=== PATIENT | male | born 1950 | race Caucasian/White ===

== ENCOUNTER → 2018-05-18 11:41 | Outpatient (CLI) | payer MEDICARE, SELFPAY ==
[2018-05-18 14:35] LABS: AST(SGOT) 22 U/L (15-37); Alanine Aminotransfer ALT/SGPT 37 U/L (16-61); Albumin, Serum 4.2 g/dL (3.2-5.0); Alkaline Phosphatase 86 U/L (45-117); Bilirubin, Direct 0.12 mg/dL (0.00-0.30); Cholesterol 139 mg/dL (200); Globulin 3.4 g/dL (2.2-4.2); High Density Lipoprotein 46 mg/dL; Protein, Total 7.6 g/dL (6.4-8.2); Thyroid Stim Hormone (TSH) 1.23 uIU/mL (0.358-3.74); Triglycerides 82 mg/dL; Very Low Density Lipoprotein 16 mg/dL (5-40)
== END ==
PROVIDERS: Family Provider Family Medicine; PCP Family Medicine; Visit Provider Family Medicine
DX: E78.00 Pure hypercholesterolemia, unspecified (principal); E03.9 Hypothyroidism, unspecified
CPT/HCPCS: 36415; 80061; 80076; 84443

== ENCOUNTER → 2018-11-17 11:17 | Outpatient (CLI) | payer MEDICARE, SELFPAY ==
[2014-11-08 06:36] VITALS: BMI 34.9
[2018-11-17 13:48] LABS: Absolute Neutrophil Count 4.6 X10^3/uL (2.0-7.7); Basophil# 0.01 X10^3/uL; Basophil% 0.2 % (0-1); Eosinophil# 0.11 X10^3/uL; Eosinophils% 1.7 % (0-5); Hematocrit 45.8 % (40-54); Hemoglobin 15.2 g/dl (13.0-16.5); Lymphocyte % 21.4 % (19-41); Mean Corp Hgb Conc 33.2 g/gl (32-36); Mean Corpuscular Hgb 30.5 pg (27.0-32.0); Mean Platelet Vol. 10.4 fl (6.2-12.0); Monocyte# 0.43 X10^3/uL; Monocyte% 6.6 % (0-10); Neutrophil # 4.58 X10^3/uL (2.7-7.7); Neutrophil % 69.9 % (47-70); POSITIVE COUNT NO; POSITIVE DIFFERENTIAL NO; POSITIVE MORPHOLOGY NO; Platelet Count 202 K/mm3 (150-450); RBC Distribution Width CV 12.6 % (11.6-14.6); RBC Distribution Width SD 42.3 fl (35.1-43.9); Red Blood Count 4.98 M/mm3 (4.6-6.2); White Blood Count 6.5 K/mm3 (4.4-11.0)
[2018-11-17 13:54] LABS: Color, Urine Yellow (Yellow); Glucose, Dipstick Normal (Normal); Ketone-Dipstick Negative (Negative); Leukocyte Esterase-Dipstick Negative /ul (Negative); Nitrite-Dipstick Negative (Negative); Occult Blood-Urine Negative /ul (Negative); Protein-Dipstick Negative (Negative); Specific Gravity, Urine 1.015 (1.002-1.030); Urine Bilirubin Dipstick Negative (Negative); Urine Clarity Clear (Clear); Urine Urobilinogen Normal (Normal); Urine pH 6.5 (5.0 - 8.0)
[2018-11-17 14:11] LABS: ALB/GLOB Ratio 1.2 RATIO (0.9-2.4); AST(SGOT) 16 U/L (15-37); Alanine Aminotransfer ALT/SGPT 31 U/L (16-61); Albumin, Serum 4.1 g/dL (3.2-5.0); Alkaline Phosphatase 88 U/L (45-117); Anion Gap 6 (5-15); BUN 14 mg/dL (7-18); BUN/Creat Ratio 13.9 RATIO (10-20); Calcium,Total 8.9 mg/dL (8.5-10.1); Chloride 105 mmol/L (98-107); Cholesterol 119 mg/dL (200); Creatinine, Serum 1.01 mg/dL (0.70-1.30); EST Glomerular Filtration Rate 78 mL/min (>60); Est Glom Filt Rate - Afr Amer 94 mL/min (>60); Globulin 3.4 g/dL (2.2-4.2); Glucose 96 mg/dL (74-106); High Density Lipoprotein 42 mg/dL; PSA,Total - Annual Screen 0.96 ng/mL (0.00-4.00); Potassium 4.2 mmol/L (3.5-5.1); Protein, Total 7.5 g/dL (6.4-8.2); Sodium Level 140 mmol/L (136-145); Triglycerides 70 mg/dL; Very Low Density Lipoprotein 14 mg/dL (5-40)
== END ==
PROVIDERS: Family Provider Family Medicine; PCP Family Medicine; Referring Provider Family Medicine; Visit Provider Family Medicine
DX: Z00.00 Encounter for general adult medical examination without abnormal findings (principal); Z12.5 Encounter for screening for malignant neoplasm of prostate; I10 Essential (primary) hypertension; E78.5 Hyperlipidemia, unspecified; E03.9 Hypothyroidism, unspecified
CPT/HCPCS: 36415; 80053; 80061; 81002; 84153; 84443; 85025; G0103

== ENCOUNTER → 2018-12-04 08:07 | Outpatient (CLI) | payer MEDICARE, SELFPAY ==
--- NOTE | 2018-12-04 08:10 | CT_ITS ---
STUDY: CT ABDOMEN AND PELVIS WITH AND WITHOUT CONTRAST REASON FOR EXAM: Male, 68 years old. Hematuria, flank pain. RADIATION DOSAGE (If Supplied By Facility): CTDIvol = ( 34.88 ) mGy, DLP = ( 4090.43 ) mGycm TECHNIQUE: Transaxial images were obtained from the dome of the diaphragm to the symphysis pubis without oral contrast. Isovue 300 100cc IV was administered. Sagittal and coronal images were reconstructed. Individualized dose optimization techniques were used for this CT. COMPARISON: Prior comparison studies are not available for review at this time. FINDINGS: Focal pleural-based density at the lateral right costophrenic sulcus (series 3 image 9) is likely a scar. The visualized portions of the heart are within normal limits. There is a 6 mm low-density consistent with a cyst in the posterior right lobe of the liver. Patent portal vein diameter is 14.5 mm. Normal gallbladder and extrahepatic biliary system. The common bile duct diameter is 7.5 mm. Normal spleen. Normal pancreas. Normal bilateral adrenal glands. There is an exophytic 4.8 x 3.5 x 5.05 cm cortical cyst at the lateral upper pole of the right kidney. There is an exophytic 1. 651.5 x 1.7 cm cortical cyst at the posterior midpole of the left kidney. There is left nephrolithiasis, the largest 8.5 x 6 x 6 mm stone in the lower pole calyx. A number of parapelvic cysts that do not clearly communicate to the renal pelvis simulate left renal caliectasis. The left renal pelvis and infundibuli are nondilated. There is some mild stranding in the tissues around the proximal left ureter, which is also nondilated. Normal visualized stomach. Normal small intestine. There are multiple colonic diverticula consistent with diverticulosis. The appendix is visualized and appears normal. There is diffuse atherosclerotic calcification of the abdominal aorta and proximal iliac arteries, without a demonstrated aneurysm. Normal inferior vena cava. Normal retroperitoneum. Normal urinary bladder. Normal visualized prostate gland. There is a small right-sided direct inguinal hernia containing adipose tissue. There are diffuse degenerative changes of the visualized spine. There is osteoarthritic degenerative change of the right hip with moderately severe narrowing of the superior hip joint space CT/CT Abd/Pelvis W/WO Contrast IMPRESSION: 1. Left nephrolithiasis, as noted. There is some inflammatory or congestive stranding about the nondistended proximal left ureter, but no left hydronephrosis. A cluster of parapelvic cysts on the left simulate caliectasis. Bilateral renal cortical cysts also present, as described. 2. Aortoiliac atherosclerotic calcific plaquing. No demonstrated aneurysm, but the findings portend significant risk for future cardiovascular event, Abdominal Aortic Calcific Deposits Are an Important Predictor of Vascular Morbidity and Mortality; Satinder Valadez, et al. Circulation, Dec 2000;103:[id number]. 3. Colonic diverticulosis without acute diverticulitis. The bowel is otherwise unremarkable without signs of obstruction. The appendix is normal. 4. 6 mm cyst in the posterior right lobe of the liver. 5. Small fat-containing direct right inguinal hernia. 6. Degenerative changes of the spine as well as severe osteoarthritic degenerative change of the right hip. Electronically Signed: Ridge De Leon MD at 19:38 EST , Service support ,
== END ==
PROVIDERS: Family Provider Family Medicine; PCP Family Medicine; Referring Provider Nurse Practitioner Adult Health; Visit Provider Nurse Practitioner Adult Health
DX: R10.9 Unspecified abdominal pain (principal); R31.9 Hematuria, unspecified
CPT/HCPCS: 74178; Q9967

== ENCOUNTER 2018-12-25 11:34 | Day surgery (SDC) | payer MEDICARE, SELFPAY ==
--- NOTE | 2018-12-24 17:58 | HP.PCM_ITS ---
History and Physical Date of Admission: 12/25/18 68 yo male pt presents for left flank pain that radiated around to left testicle, this occurred 7 wks ago, the pain resolved but he still has a funny sensation along the left ureter. No gross hematuria. Urine was full of bubbles x 3 days at the onset. Has had kidney stones before. H/o left ureteroscopy, ESWL x 2. CC: AUA Questions Scoring. HPI: ALFREDO HAMPTON is a 68 year-old male patient who was referred by BRIAN COYLE M.D. who is here AUA Questions. AUA Symptom Score: Less than 20% of the time he has the sensation of not emptying his bladder completely when finished urinating. Less than 50% of the time he has to urinate again fewer than two hours after he has finished urinat ing. Less than 20% of the time he has to start and stop again several times when he urinates. He never finds it difficult to postpone urination. Less than 20% of the time he has a weak urinary stream. He never has to push or strain to begin urination. He has to get up to urinate 2 times from the time he goes to bed until the time he gets up in the morning. Calculated AUA Symptom Score: 7 ALLERGIES: None MEDICATIONS: Amlodipine Besilate Co-Q10 Levothyroxine Sodium Lisinopril Simvastatin 20 mg tablet PSH: None NON- PSH: None PMH: Calculus of kidney Frequency of micturition Nocturia Personal history of urinary calculi NON- PMH: Essential (primary) hypertension Hypothyroidism, unspecified FAMILY HISTORY: None SOCIAL HISTORY: Marital Status: Preferred Language: Hungarian Current Smoking Status: Patient does not smoke anymore. Smoked 2 packs per day. Tobacco Use Assessment Completed: Used Tobacco in last 30 days? Does not use smokeless tobacco. Social Drinker. Does not use drugs. REVIEW OF SYSTEMS: Constitutional: Patient denies fever, chills, weight loss, and weight gain. Eyes: Patient denies cataracts, vision problems, and blurry vision. Ears, Nose, Mouth, Throat: Patient reports sinus infections. Patient denies hearing loss, nasal stuffiness, and sleep apnea. Cardiovascular: Patient denies chest pains, swollen ankles, irregular heartbeat, and pacemaker/defibrillator. Respiratory: Patient denies shortness of breath, wheezing, use oxygen, cpap at night., and copd. Gastrointestinal: Patient denies abdominal pain, nausea/vomiting, and change in bowels. Genitourinary: Patient reports frequent urination, get up at night to void, history of stones, and difficulty starting stream. Patient denies urinary retent ion, leakage of urine, blood in urine, frequent urinary tract infections, weak stream, and bedwetting. Musculoskeletal: Patient denies sore muscles, back pain, gout, and arthritis. Integumentary/Skin: Patient denies rash, persistent itching, and skin cancer history. Neurological: Patient denies numbness, dizziness, stroke/tia, and history of falling/unsteadiness.. Hematologic/Lymphatic: Patient denies swollen glands, abnormal bleeding, transfusion history, and blood clots/dvt/pulmonary embolism. VITAL SIGNS: 11/30/2018 10:59 AM Weight 254 lb / 115.21 kg Height 72 in / 182.88 cm BP 132/80 mmHg BMI 34.4 kg/m? PHYSICAL EXAMINATION: Anus and Perineum: No hemorrhoids. No anal stenosis. No rectal fissure, no anal fissure. No edema, no dimple, no perineal tenderness, no anal tenderness. Scrotum: No lesions. No edema. No cysts. No warts. Epididymides: Right: no spermatocele, no masses, no cysts, no tenderness, no induration, no enlargement. Left: no spermatocele, no masses, no cysts, no tenderness, no induration, no enlargement. Testes: 3-5 cm hydrocele left testis. No tenderness, no swelling, no enlargement left testis. No tenderness, no swelling, no enlargement right testis. Normal location left testis. Normal location right testis. No mass, no cyst, no varicocele left testis. No mass, no cyst, no varicocele, no hydrocele right testis. Urethral Meatus: Normal size. No lesion, no wart, no discharge, no polyp. Normal location. Penis: Penis uncircumcised. No foreskin warts, no cracks. No dorsal peyronie's plaques, no left corporal peyronie's plaques, no right corporal peyronie's plaques, no scarring, no shaft warts. No balanitis, no meatal stenosis. Prostate: 40 gram or 2+ size. Left lobe normal consistency, right lobe normal consistency. Symmetrical lobes. No prostate nodule. Left lobe no tenderness, right lobe no tenderness. Seminal Vesicles: Nonpalpable. Sphincter Tone: Normal sphincter. No rectal tenderness. No rectal mass. MULTI-SYSTEM PHYSICAL EXAMINATION: Constitutional: Well-nourished. No physical deformities. Normally developed. Good grooming. Neck: Neck symmetrical, not swollen. Normal tracheal position. Respiratory: No labored breathing, no use of accessory muscles. Cardiovascular: Normal temperature, normal extremity pulses, no swelling, no varicosities. Lymphatic: No enlargement of neck, axillae, groin. Skin: No paleness, no jaundice, no cyanosis. No lesion, no ulcer, no rash. Neurologic / Psychiatric: Oriented to time, oriented to place, oriented to person. No depression, no anxiety, no agitation. Gastrointestinal: No mass, no tenderness, no rigidity, non obese abdomen. Eyes: Normal conjunctivae. Normal eyelids. Musculoskeletal: Normal gait PAST DATA REVIEWED: Source Of History: Patient Records Review: Previous Doctor Records Urine Test Review: Urinalysis 11/17/18 11/21/16 PSA Total PSA 0.96 1.06 PROCEDURES: Urinalysis - 62543 Dipstick Dipstick Cont'd Specimen: Voided Blood: about 250 Appearance: Clear Protein: Neg Color: Yellow Urobilinogen: Neg Glucose: Normal Nitrites: Neg Bilirubin: Neg Leukocyte Esterase: Neg Ketones: Neg ASSESSMENT: ICD-10 Details 1 : Other microscopic hematuria - R31.29 2 Unspecified abdominal pain - R10.9 3 Calculus of kidney - N20.0 PLAN: Document Letter(s): Created for Patient: Clinical Summary Notes: 68 yo male with h/o kidney stones, recent severe left flank pain with ongoing discomfort, microscopic hematuria, long smoking history. Will get CT abd pel wwo IV contrast. Will decide later re in-office cysto based on if treatment needed for calculi. Plan for cysto and left sent and LEFt ESWL treatment of stones.
[2018-12-25 12:05] VITALS: BP 144/83; PULSE 94; RESP 18; TEMP 36.7; O2SAT 94; BMI 35.4
[2018-12-25] MEDS: Cefazolin 2 GM in 0.9% Normal Saline 100 ML IV (14:13)
[2018-12-25 15:07] VITALS: BP 114/72; BP 144/83; PULSE 87; RESP 18; TEMP 37.2; O2SAT 94
--- NOTE | 2018-12-25 15:07 | DCINST_ITS ---
Discharge Diet: Light diet - advance as tolerated Discharge Activity: Return to Normal Activity Suture Line Care: Avoid Pulling/Pushing, Avoid Pinching/Bending Allergies/Adverse Reactions: Allergies No Known Allergies Allergy (Verified 12/18/18 10:22) Medications to take at Discharge Levothyroxine [Synthroid] 75 mcg PO DAILY 11/04/14 Simvastatin [Zocor] 20 mg PO QHS 11/04/14 Amlodipine [Norvasc] 5 mg PO DAILY 12/18/18 Lisinopril [Prinivil] 10 mg PO DAILY 12/18/18 Ubidecarenone [Coq-10] 200 mg PO DAILY 12/18/18 Acetaminophen [Tylenol Extra Strength] 500 mg PO Q4H PRN PRN #20 tablet 12/25/18 Ibuprofen 600 mg PO Q6H PRN PRN #20 tablet 12/25/18 Primary Care Physician: Tello Ford MD [Primary Care Provider] - Test Results: Test results from this visit will be discussed in further detail at your follow- up appointment, if applicable. Please Follow Up With: Barrett Ochoa MD When: please call to make an appointment.
--- NOTE | 2018-12-25 15:07 | PCM.OPRPT ---
Report of Operation Date of Procedure: 12/25/18 Pre-Operative Diagnosis: Left renal calculi lower pole of the kidney Post-Operative Diagnosis: Same Surgery/Procedure Performed:: Left extracorporeal shockwave lithotripsy Description of Surgical Findings:: Indication is a 68-year-old male was found to have a stone in the lower pole of the left kidney is fairly large stone, appeared to be 2 stones next to each other presents today for shockwave treatment of the stones we will plan to place a stent today. 68-year-old male taken back to the operating room at the smooth induction of anesthesia he was placed supine on the table We used the lithotripter table to localize the stone in the lower pole of the left kidney once the stones were in the F2 focal point of the of the table we proceeded with shockwave lithotripsy was started at a rate of 90 power ranging from 5-7 first and low voltage and then we increased the voltage stones start fragmenting fairly well and then we continue with the treatments and at the end of the treatment cycle total of 3000 treatment shockwaves were given to the kidney stones in the stones broke up fairly well could still see some visible fragments but had changes stone significantly. Decided not to place a stent patient anesthetic was reversed taken back to PACU good condition will see him in a few weeks with a KUB. Type of Anesthesia:: General Drains: none - Admit VTE Documentation VTE Present on Admission: No
[2018-12-25 15:15] VITALS: BP 124/76; BP 144/83; PULSE 92; RESP 16; O2SAT 94
[2018-12-25] MEDS: Ketorolac 15 MG/ML Vial IV (15:17)
[2018-12-25 15:30] VITALS: BP 128/78; BP 144/83; PULSE 86; RESP 14; TEMP 36.8; O2SAT 95
[2018-12-25 16:48] VITALS: BP 131/67; BP 144/83; PULSE 74; RESP 16; TEMP 36.7; O2SAT 96
== END 2018-12-25 16:50 | disposition home or self-care (01) ==
LOC: SDC 11:36 → AC 11:37
PROVIDERS: Family Provider Family Medicine; PCP Family Medicine; Referring Provider Urology; Visit Provider Urology
PROC: (CPT 50590; principal; 2018-12-25 13:10)
DX: N20.0 Calculus of kidney (principal); Z87.442 Personal history of urinary calculi; I10 Essential (primary) hypertension; E03.9 Hypothyroidism, unspecified; E06.9 Thyroiditis, unspecified; Z79.899 Other long term (current) drug therapy; Z87.891 Personal history of nicotine dependence
CPT/HCPCS: 50590; J7120

== ENCOUNTER → 2019-01-05 10:39 | Outpatient (CLI) | payer MEDICARE, SELFPAY ==
[2018-12-25 12:05] VITALS: BMI 35.4
--- NOTE | 2019-01-05 10:55 | RAD_ITS ---
STUDY: X-RAY - ABDOMEN/PELVIS REASON FOR EXAM: Male, 69 years old. Left kidney stones. Prior lithotripsy. TECHNIQUE: Single AP view of the abdomen / pelvis. COMPARISON: None. FINDINGS: Normal visualized lung bases. There is a moderate amount of colonic fecal material. There is a fragmented 1.1 cm calculus in the lower pole calyx of the left kidney. 2 mm calculus is seen in the mid pole calyx of the left kidney and a tiny nonobstructive calculi are also seen in the upper pole of the left kidney. Normal soft tissue structures. There are diffuse degenerative changes of the visualized lumbar spine. RAD/Abdomen Single View IMPRESSION: Multiple nonobstructive left intrarenal calculi. The largest measures 1.1 cm and is fragmented in the lower pole. Electronically Signed: Jorge Jones, at 8:10 EDT , Service support ,
== END ==
PROVIDERS: Family Provider Family Medicine; PCP Family Medicine; Referring Provider Nurse Practitioner Adult Health; Visit Provider Nurse Practitioner Adult Health
DX: N20.0 Calculus of kidney (principal)
CPT/HCPCS: 74018

== ENCOUNTER → 2019-05-18 09:31 | Outpatient (CLI) | payer MEDICARE, SELFPAY ==
[2019-05-18 12:52] LABS: AST(SGOT) 14 U/L (15-37); Alanine Aminotransfer ALT/SGPT 31 U/L (16-61); Albumin, Serum 4.1 g/dL (3.2-5.0); Alkaline Phosphatase 93 U/L (45-117); Bilirubin, Direct 0.11 mg/dL (0.00-0.30); Cholesterol 134 mg/dL (200); Globulin 3.4 g/dL (2.2-4.2); High Density Lipoprotein 45 mg/dL; Protein, Total 7.5 g/dL (6.4-8.2); Thyroid Stim Hormone (TSH) 1.45 uIU/mL (0.358-3.74); Triglycerides 78 mg/dL; Very Low Density Lipoprotein 16 mg/dL (5-40)
== END ==
PROVIDERS: Family Provider Family Medicine; PCP Family Medicine; Referring Provider Family Medicine; Visit Provider Family Medicine
DX: E78.5 Hyperlipidemia, unspecified (principal); E03.9 Hypothyroidism, unspecified
CPT/HCPCS: 36415; 80061; 80076; 84443

== ENCOUNTER → 2019-11-18 10:29 | Outpatient (CLI) | payer MEDICARE, SELFPAY ==
[2019-11-18 12:32] LABS: Color, Urine Yellow (Yellow); Glucose, Dipstick Normal (Normal); Ketone-Dipstick Negative (Negative); Leukocyte Esterase-Dipstick Negative /ul (Negative); Nitrite-Dipstick Negative (Negative); Occult Blood-Urine Negative /ul (Negative); Protein-Dipstick Negative (Negative); Urine Bilirubin Dipstick Negative (Negative); Urine Clarity Clear (Clear); Urine Urobilinogen Normal (Normal)
[2019-11-18 12:35] LABS: Absolute Lymphocyte Count 1.25 X10^3/uL (0.83-4.51); Absolute Neutrophil Count 5.1 X10^3/uL (2.0-7.7); Basophil# 0.03 X10^3/uL; Basophil% 0.4 % (0-1); Eosinophil# 0.11 X10^3/uL; Eosinophils% 1.6 % (0-5); Hematocrit 48.3 % (40-54); Hemoglobin 15.8 g/dL (13.0-16.5); Lymphocyte # 1.25 X10^3/ul (4.0); Lymphocyte % 17.8 % (19-41); Mean Corp Hgb Conc 32.7 g/dL (32-36); Mean Corpuscular Hgb 29.5 pg (27.0-32.0); Mean Corpuscular Volume 90.1 fL (80-94); Mean Platelet Vol. 10.7 fl (6.2-12.0); Monocyte# 0.48 X10^3/uL; Monocyte% 6.8 % (0-10); NRBC Flagged by Analyzer 0 % (0-5); Neutrophil # 5.12 X10^3/uL (2.7-7.7); Neutrophil % 73.1 % (47-70); Platelet Count 183 K/mm3 (150-450); RBC Distribution Width CV 12.3 % (11.6-14.6); RBC Distribution Width SD 40.3 fl (35.1-43.9); Red Blood Count 5.36 M/mm3 (4.6-6.2)
[2019-11-18 12:55] LABS: ALB/GLOB Ratio 1.3 RATIO (0.9-2.4); AST(SGOT) 18 U/L (15-37); Alanine Aminotransfer ALT/SGPT 47 U/L (16-61); Albumin, Serum 4.1 g/dL (3.2-5.0); Alkaline Phosphatase 83 U/L (45-117); Anion Gap 6 (5-15); BUN 12 mg/dL (7-18); BUN/Creat Ratio 13.1 RATIO (10-20); Chloride 108 mmol/L (98-107); Cholesterol 129 mg/dL (200); Creatinine, Serum 0.91 mg/dL (0.70-1.30); EST Glomerular Filtration Rate 87 mL/min (>60); Est Glom Filt Rate - Afr Amer 105 mL/min (>60); Globulin 3.1 g/dL (2.2-4.2); Glucose 98 mg/dL (74-106); High Density Lipoprotein 52 mg/dL; PSA,Total - Annual Screen 1.07 ng/mL (0.00-4.00); Potassium 4.1 mmol/L (3.5-5.1); Protein, Total 7.2 g/dL (6.4-8.2); Sodium Level 142 mmol/L (136-145); Triglycerides 81 mg/dL; Very Low Density Lipoprotein 16 mg/dL (5-40)
== END ==
PROVIDERS: PCP Family Medicine; Referring Provider Family Medicine; Visit Provider Family Medicine
DX: Z00.00 Encounter for general adult medical examination without abnormal findings (principal); I10 Essential (primary) hypertension; M13.0 Polyarthritis, unspecified; E78.5 Hyperlipidemia, unspecified; E03.9 Hypothyroidism, unspecified; Z12.5 Encounter for screening for malignant neoplasm of prostate
CPT/HCPCS: 36415; 80053; 80061; 81002; 84153; 84443; 85025; G0103

== ENCOUNTER → 2019-12-20 07:52 | Outpatient (CLI) | payer MEDICARE, SELFPAY ==
--- NOTE | 2019-12-20 08:00 | RAD_ITS ---
STUDY: X-RAY - ABDOMEN/PELVIS REASON FOR EXAM: Male, 69 years old. Kidney Stones broken up about 1 year ago. Annual follow up. Stones were on Left side. TECHNIQUE: Single AP view of the abdomen / pelvis. COMPARISON: Comparison is made with prior study dated January 05, 2019. FINDINGS: There is an unremarkable bowel gas pattern. Tiny residual calcification in the midpole calyx of the left kidney. Normal soft tissue structures. There are diffuse degenerative changes of the visualized lumbar spine. RAD/Abdomen Single View IMPRESSION: Tiny residual calcification in the midpole calyx of the left kidney. Electronically Signed: Jorge Jones, at 13:51 EDT , Service support ,
== END ==
PROVIDERS: PCP Family Medicine; Referring Provider Urology; Visit Provider Urology
DX: N20.0 Calculus of kidney (principal)
CPT/HCPCS: 74018

== ENCOUNTER → 2020-05-16 10:21 | Outpatient (CLI) | payer MEDICARE, SELFPAY ==
[2020-05-16 13:27] LABS: ALB/GLOB Ratio 1.4 RATIO (0.9-2.4); AST(SGOT) 17 U/L (15-37); Alanine Aminotransfer ALT/SGPT 36 U/L (16-61); Albumin, Serum 4.2 g/dL (3.2-5.0); Alkaline Phosphatase 86 U/L (45-117); Anion Gap 8 (5-15); BUN 16 mg/dL (7-18); BUN/Creat Ratio 19.9 RATIO (10-20); Calcium,Total 8.8 mg/dL (8.5-10.1); Chloride 105 mmol/L (98-107); Cholesterol 126 mg/dL (200); EST Glomerular Filtration Rate 101 mL/min (>60); Est Glom Filt Rate - Afr Amer 122 mL/min (>60); Glucose 113 mg/dL (74-106); High Density Lipoprotein 45 mg/dL; Protein, Total 7.2 g/dL (6.4-8.2); Sodium Level 140 mmol/L (136-145); Thyroid Stim Hormone (TSH) 0.91 uIU/mL (0.358-3.74); Triglycerides 67 mg/dL; Very Low Density Lipoprotein 13 mg/dL (5-40)
== END ==
PROVIDERS: PCP Family Medicine; Referring Provider Family Medicine; Visit Provider Family Medicine
DX: I10 Essential (primary) hypertension (principal); E78.5 Hyperlipidemia, unspecified; E03.9 Hypothyroidism, unspecified
CPT/HCPCS: 36415; 80053; 80061; 84443

== ENCOUNTER → 2020-11-23 07:54 | Outpatient (CLI) | payer MEDICARE, SELFPAY ==
[2020-11-23 10:23] LABS: Absolute Lymphocyte Count 1.57 X10^3/uL (0.83-4.51); Absolute Neutrophil Count 3.5 X10^3/uL (2.0-7.7); Basophil# 0.04 X10^3/uL; Basophil% 0.7 % (0-1); Eosinophil# 0.21 X10^3/uL; Eosinophils% 3.6 % (0-5); Hematocrit 47.7 % (40-54); Hemoglobin 15.7 g/dL (13.0-16.5); Lymphocyte # 1.57 X10^3/ul (4.0); Lymphocyte % 27.1 % (19-41); Mean Corp Hgb Conc 32.9 g/dL (32-36); Mean Corpuscular Volume 91.2 fL (80-94); Mean Platelet Vol. 10.8 fl (6.2-12.0); Monocyte# 0.51 X10^3/uL; Monocyte% 8.8 % (0-10); NRBC Flagged by Analyzer 0 % (0-5); Neutrophil # 3.46 X10^3/uL (2.7-7.7); Neutrophil % 59.6 % (47-70); Platelet Count 223 K/mm3 (150-450); RBC Distribution Width CV 12.6 % (11.6-14.6); RBC Distribution Width SD 42.4 fl (35.1-43.9); Red Blood Count 5.23 M/mm3 (4.6-6.2); White Blood Count 5.8 K/mm3 (4.4-11.0)
[2020-11-23 10:45] LABS: ALB/GLOB Ratio 1.2 RATIO (0.9-2.4); AST(SGOT) 20 U/L (15-37); Alanine Aminotransfer ALT/SGPT 42 U/L (16-61); Albumin, Serum 4.2 g/dL (3.2-5.0); Alkaline Phosphatase 91 U/L (45-117); Anion Gap 7 (5-15); BUN 21 mg/dL (7-18); BUN/Creat Ratio 20.6 RATIO (10-20); Calcium,Total 9.3 mg/dL (8.5-10.1); Chloride 104 mmol/L (98-107); Cholesterol 145 mg/dL (200); Creatinine, Serum 1.02 mg/dL (0.70-1.30); EST Glomerular Filtration Rate 76 mL/min (>60); Est Glom Filt Rate - Afr Amer 92 mL/min (>60); Globulin 3.4 g/dL (2.2-4.2); Glucose 119 mg/dL (74-106); High Density Lipoprotein 49 mg/dL; PSA,Total - Annual Screen 1.21 ng/mL (0.00-4.00); Potassium 4.1 mmol/L (3.5-5.1); Protein, Total 7.6 g/dL (6.4-8.2); Sodium Level 138 mmol/L (136-145); Thyroid Stim Hormone (TSH) 1.55 uIU/mL (0.358-3.74); Triglycerides 90 mg/dL; Very Low Density Lipoprotein 18 mg/dL (5-40)
[2020-11-28 08:57] LABS: Hemoglobin A1c 5.5 % (3.8-5.6)
== END ==
PROVIDERS: PCP Family Medicine; Referring Provider Family Medicine; Visit Provider Family Medicine
DX: Z00.00 Encounter for general adult medical examination without abnormal findings (principal); I10 Essential (primary) hypertension; E78.5 Hyperlipidemia, unspecified; E03.9 Hypothyroidism, unspecified; R73.9 Hyperglycemia, unspecified; Z12.5 Encounter for screening for malignant neoplasm of prostate
CPT/HCPCS: 36415; 80053; 80061; 83036; 84153; 84443; 85025; G0103

== ENCOUNTER → 2020-12-18 09:31 | Outpatient (CLI) | payer MEDICARE, SELFPAY ==
--- NOTE | 2020-12-18 09:48 | RAD_ITS ---
STUDY: X-RAY - ABDOMEN/PELVIS REASON FOR EXAM: Male, 70 years old. KIDNEY STONE TECHNIQUE: Single AP view of the abdomen / pelvis. COMPARISON: Comparison is made with prior study dated 12/20/2019. FINDINGS: There is a moderate amount of colonic fecal material. Faint calcifications are seen in the mid pole calyx of the left kidney. Normal soft tissue structures. There are diffuse degenerative changes of the visualized lumbar spine. Marked degree of joint space narrowing of the right hip joint. RAD/Abdomen Single View IMPRESSION: Faint calcifications are seen in the mid pole calyx of the left kidney. There has been no change. Electronically Signed: Jorge Jones MD at 13:48 EDT , Service support ,
== END ==
PROVIDERS: PCP Family Medicine; Referring Provider Urology; Visit Provider Urology
DX: N20.0 Calculus of kidney (principal)
CPT/HCPCS: 74018

== ENCOUNTER 2021-01-31 09:46 | Day surgery (SDC) | payer MEDICARE, SELFPAY ==
[2021-01-31 10:21] VITALS: BP 153/80; PULSE 87; RESP 16; TEMP 36.2; O2SAT 96; BMI 37.7
[2021-01-31] MEDS: Lactated Ringers 1,000 ML 100 ML IV ×2 (10:35→12:57)
--- NOTE | 2021-01-31 11:57 | PCM.HP.STD ---
HPI - General General Date of Admission: 12/25/18 HPI Narrative ALFREDO HAMPTON, is a 71 M who presents Symptomatic left hydrocele and BPH with obstruction plan to proceed today with surgical invention. [facility] Home Medications levothyroxine 75 mcg PO DAILY 11/04/14 [History Last Taken 01/31/21 06:00] simvastatin 20 mg PO QHS 11/04/14 [History Last Taken Unknown] amlodipine 5 mg PO DAILY 12/18/18 [History Last Taken 01/31/21 06:00] coenzyme Q10 [Coq-10] 200 mg PO DAILY 12/18/18 [History Last Taken Unknown] lisinopril [Prinivil] 10 mg PO DAILY 12/18/18 [History Last Taken 01/31/21 06:00] acetaminophen 500 mg PO Q4H PRN PRN #20 tablet 12/25/18 [Rx Last Taken Unknown] cholecalciferol (vitamin D3) 2,000 unit PO DAILY 01/24/21 [History Last Taken Unknown] dexamethasone sodium phosphate 5 ml OP BID 01/24/21 [History Last Taken Unknown] meloxicam 7.5 mg PO DAILY PRN 01/24/21 [History Last Taken Unknown] zinc 50 mg PO DAILY 01/24/21 [History Last Taken Unknown] cephalexin [Keflex] 750 mg PO TID #14 cap 01/31/21 [Rx Last Taken Unknown] ibuprofen 600 mg PO Q8H PRN #20 tab 01/31/21 [Rx Last Taken Unknown] Allergy/AdvReac Type Severity Reaction Status Date / Time No Known Allergies Allergy Verified 01/24/21 10:08 Social History Smoking Status: Former smoker Vital Signs Vital Signs Vital Signs: 01/31/21 10:21 Temperature 97.2 F L Temperature Source Temporal Pulse Rate 87 Respiratory Rate 16 Respiratory Pattern Normal Blood Pressure 153/80 H Blood Pressure Mean 104 Blood Pressure Source Monitor Blood Pressure Position Semi-Fowlers Blood Pressure Location Right Arm Pulse Ox 96 Oxygen Delivery Method Room Air Physical Exam Const alert and oriented x3 General Appearance: cooperative HEENT normocephalic, head/scalp atraumatic, EAC's normal and TM's normal bilaterally Eyes PERRL and EOMs intact bilaterally Pupil: sluggish Neck no lymphadenopathy, supple and no JVD General: trachea midline Lymph Lymphatic: no lymphadenopathy noted, lymphedema and lymphadenopathy Resp normal respiratory effort, normal air movement and clear to auscultation bilaterally Cardio regular rate, regular rhythm and peripheral pulses 2+ throughout GI soft to palpation, non-tender and non-distended Extremity normal capillary refill and no clubbing, cyanosis or edema General Extremity: no tenderness to palpation of joints or extremities Skin no rashes or lesions noted General Skin Exam: turgor normal Lesions: no lesions Rashes: no rashes Neuro CN's II-XII intact bilaterally Speech: speech normal Motor Exam: strength 5/5 throughout; Negative for general weakness Psych thought process normal, cooperative and affect normal Appearance: appropriate Lab / Micro Data Micro: Microbiology 01/30/21 08:55 SARS-CoV-2 Antigen (Rapid) - Final Interface Orders Assessment & Plan Assessment/Plan (1) Hydrocele: Status: Acute Code(s): N43.3 - Hydrocele, unspecified Plan: Plan to proceed with left hydrocelectomy and a diagnostic cystoscopy for BPH.
--- NOTE | 2021-01-31 11:58 | PCM.DC ---
Discharge Instructions Outpatient Procedure Reason For Visit: LT HYDROCELECTOMY, CYSTO Diet Discharge Diet: No restrictions Activity Discharge Activity: May not drive while taking narcotic pain medications. and May Shower Return to work on:: 02/14/21 May shower in (days): 1 Dressing / Incision Call your doctor if your incision/area has: Continuous Slow Oozing and Sudden Increased Bleeding Call your doctor if you observe: Fever of 101 or Higher Cleanse incision/area with: Soap & Water Additional Dressing/Incision Instructions:: ice scrotum Follow Up Care Please Follow Up With: Barrett Ochoa MD When: 2 weeks. Test Results: Test results from this visit will be discussed in further detail at your follow-up appointment, if applicable. Discharge Plan Admission Primary Reason for Your Visit: left hydrocelectomy and cystoscopy Attending Provider: Barrett Ochoa Primary Care Provider: Tello Ford Discharge Orders/Prescriptions Prescriptions: New ibuprofen 600 mg tablet 600 mg PO Q8H PRN (Reason: pain) Qty: 20 RF: 0 cephalexin [Keflex] 750 mg capsule 750 mg PO TID Qty: 14 RF: 0 No Action levothyroxine 75 MCG tablet 75 mcg PO DAILY RF: 0 simvastatin 20 MG tablet 20 mg PO QHS RF: 0 amlodipine 5 MG tablet 5 mg PO DAILY RF: 0 lisinopril [Prinivil] 10 MG tablet 10 mg PO DAILY RF: 0 coenzyme Q10 [CoQ-10] 100 MG capsule 200 mg PO DAILY RF: 0 acetaminophen 500 MG tablet 500 mg PO Q4H PRN PRN (Reason: Pain) Qty: 20 RF: 0 dexamethasone sodium phosphate 5 ML drops 5 ml OP BID RF: 0 meloxicam 7.5 MG tablet 7.5 mg PO DAILY PRN (Reason: Pain Score 1-10) RF: 0 zinc 50 MG tablet 50 mg PO DAILY RF: 0 cholecalciferol (vitamin D3) 2,000 UNIT capsule 2,000 unit PO DAILY RF: 0 Referrals: Tello Ford MD [Primary Care Provider] - Disposition Discharge Orders: Discharge Patient (Routine); Ordered 01/31/21 Ordered By: Dr. Barrett Ochoa
--- NOTE | 2021-01-31 12:00 | HYD_PTH ---
PATIENT: ALFREDO H[place]PTON [place] [facility] [place][id number] AGE/SX: 71/M ROOM: RE01/31/[address]: Dr. Barrett Ochoa MD : 1950 BED: DIS: 01/31/2021 SPEC #: [id number] RECD: 01/31/21 14:05 STATUS: JUDITH REJoana #: [id number] ACOSTA: 01/31/21 12:[address]: Barrett Ochoa DEPT: SURGICAL PATHOLOGY RECD BY: Sandhya Tuttle ENTERED: 02/01/21 08:19 SP TYPE: HYDROCELE OTHR DR: Dr. Tello Ford MD Tissues: HYDROCELE Procedures: Surgery Specimen Level II HEADER OPERATION: Hydrocelectomy and cystoscopy PRE-OP DIAGNOSIS: Hydrocele, BPH TISSUE SUBMITTED: Hydrocele MICROSCOPIC DIAGNOSIS Hydrocele: Consistent with hydrocele. SJ:naveed 02/02/2021 MICROSCOPIC DESCRIPTION Slides are reviewed. GROSS DESCRIPTION Received in fixative is one container labeled with the patient's name and designated hydrocele. The specimen consists of multiple pieces of moreno-pink soft tissue that in aggregate measure 5 x 4 x 0.5 cm. No mass lesion is identified. Blueprint Maker sections are submitted in one cassette. / SJ:naveed 02/01/21 TC:5 CPT: 57378
[2021-01-31] MEDS: Bupivacaine Mpf 0.5% 30 ML VIAL (12:15)
--- NOTE | 2021-01-31 12:35 | OP.PCM_ITS ---
Report of Operation Date of Procedure: 01/31/21 Pre-Operative Diagnosis: BPH and left large hydrocele Post-Operative Diagnosis: Same Surgery/Procedure Performed:: Left hydrocelectomy, diagnostic cystoscopy Description of Surgical Findings:: Patient presents for surgical removal of a symptomatic hydrocele. We discussed in the preoperative setting what to expect with the surgery. We discussed the expected results with surgery. He un derstands with removal of a hydrocele there is a risk of bleeding, infection, hematoma formation, abscess formation, recurrence of hydrocele, pain and swelling. He will be given postoperative antibiotics and anti-inflammatories he was given instructions for no heavy lifting or heavy activity. And to wear tight supportive underwear and ice to scrotum as necessary for swelling. After discussion with the patient and review of the risk and benefits were to proceed with a hydrocelectomy. Patient was taken back to the operating room, he was placed supine on the operating room table, a timeout procedure was performed and the patient was identified in the side of the surgery was marked and confirmed by the operating room staff. Patient then underwent general anesthesia by the anesthesiology t bonnie. Once general anesthesia was secured then to the scrotum penis area was shaved prepped and draped in usual sterile fashion. On inspection he could see palpate the hydrocele that was quite large on the left side. The hydrocele was about 5 centimeters in size. I then made a small incision over the hydrocele sac infiltrated the skin with Marcaine. I then made a small incision over the hydrocele sac dissected down to the hydrocele sac itself and then infiltrated the sac with lidocaine. The hydrocele sac was then grabbed with Allis clamps on both sides and drained and then through the small incision the testicle and hydrocele sac was delivered. Then using electrocautery and pinpoint dissection I removed the hydrocele sac from the testicle. We then used electrocautery and pinpoint electrocautery and suture ligation to control and get perfect hemostasis to stop all bleeding from around the testicle. The testicle itself was identified the vas deferens of the testicle the spermatic cord. There is no injury to the spermatic cord during the dissection section. After the hydrocele sac was excised I then created a dartos space in the scrotum and the testicle was placed back in the ductal space sac. We made sure that there was good hemostasis. We then closed over the testicle in 2 layers closing the dartos layer and then the subcutaneous layer and then the skin layer with subcuticular stitches. Then after the hydrocele was performed we did a diagnostic cystoscopy with a flexible cystoscope on the table, the entire length of the urethra was normal, the prostate had minimal obstruction, inside the bladder no trabeculation no tumors or stones within the bladder normal prostate normal bladder on cystoscopy.All sponges and needles were accounted for patient's anesthetic was reversed and he was taken back to the PACU in stable condition and with tight supportive scrotal support. Type of Anesthesia: General Specimen's removed: hydrocele Drains: none Admit VTE Documentation VTE Mechan Device Prophylaxis: SCD's
[2021-01-31 12:50] VITALS: BP 147/95; BP 153/80; PULSE 97; RESP 18; TEMP 36.7; O2SAT 98
[2021-01-31 13:03] VITALS: BP 136/94; BP 153/80; PULSE 90; RESP 18; O2SAT 95
[2021-01-31 13:15] VITALS: BP 137/83; BP 153/80; PULSE 85; RESP 18; O2SAT 93
[2021-01-31 13:30] VITALS: BP 146/87; BP 153/80; PULSE 86; RESP 18; TEMP 36.9; O2SAT 96
[2021-01-31 14:55] VITALS: BP 153/80; BP 163/80; PULSE 79; RESP 16; TEMP 36.6; O2SAT 94
[2021-01-31] MEDS: Acetaminophen 325 MG Tablet 650 MG PO (15:10)
== END 2021-01-31 15:21 ==
LOC: SDC 09:46 → AC 09:47
PROVIDERS: PCP Family Medicine; Referring Provider Urology; Visit Provider Urology
PROC: (CPT 52000; principal; 2021-01-31 11:50)
DX: N43.3 Hydrocele, unspecified (principal); N40.1 Benign prostatic hyperplasia with lower urinary tract symptoms; Z20.828 Contact with and (suspected) exposure to other viral communicable diseases; I10 Essential (primary) hypertension; Z87.891 Personal history of nicotine dependence; Z79.899 Other long term (current) drug therapy; E03.9 Hypothyroidism, unspecified
CPT/HCPCS: 52000; 55040; 87426; 88302; C9803; J7120; J2405

== ENCOUNTER → 2021-05-21 11:38 | Outpatient (CLI) | payer MEDICARE, SELFPAY ==
[2021-05-21 15:28] LABS: Hemoglobin A1c 5.7 % (3.8-5.6)
[2021-05-21 15:45] LABS: ALB/GLOB Ratio 1.4 RATIO (0.9-2.4); AST(SGOT) 19 U/L (15-37); Alanine Aminotransfer ALT/SGPT 46 U/L (16-61); Albumin, Serum 4.4 g/dL (3.2-5.0); Alkaline Phosphatase 89 U/L (45-117); Anion Gap 7 (5-15); BUN 14 mg/dL (7-18); BUN/Creat Ratio 18.7 RATIO (10-20); Chloride 105 mmol/L (98-107); Cholesterol 145 mg/dL (200); Creatinine, Serum 0.75 mg/dL (0.70-1.30); EST Glomerular Filtration Rate 109 mL/min (>60); Est Glom Filt Rate - Afr Amer 132 mL/min (>60); Globulin 3.2 g/dL (2.2-4.2); Glucose 96 mg/dL (74-106); High Density Lipoprotein 44 mg/dL; Potassium 3.8 mmol/L (3.5-5.1); Protein, Total 7.6 g/dL (6.4-8.2); Sodium Level 139 mmol/L (136-145); Thyroid Stim Hormone (TSH) 1.33 uIU/mL (0.358-3.74); Triglycerides 92 mg/dL; Very Low Density Lipoprotein 18 mg/dL (5-40)
== END ==
PROVIDERS: PCP Family Medicine; Referring Provider Family Medicine; Visit Provider Family Medicine
DX: R73.9 Hyperglycemia, unspecified (principal); I10 Essential (primary) hypertension; E78.5 Hyperlipidemia, unspecified; E03.9 Hypothyroidism, unspecified
CPT/HCPCS: 36415; 80053; 80061; 83036; 84443

== ENCOUNTER 2021-11-23 08:20 | Outpatient (CLI) | payer MEDICARE, SELFPAY ==
[2021-11-23 10:19] LABS: Hemoglobin A1c 5.7 % (3.8-5.6)
[2021-11-23 10:23] LABS: ALB/GLOB Ratio 1.2 RATIO (0.9-2.4); AST(SGOT) 18 U/L (15-37); Alanine Aminotransfer ALT/SGPT 39 U/L (16-61); Albumin, Serum 4.1 g/dL (3.2-5.0); Alkaline Phosphatase 81 U/L (45-117); Anion Gap 7 (5-15); BUN 16 mg/dL (7-18); BUN/Creat Ratio 18.7 RATIO (10-20); Calcium,Total 8.8 mg/dL (8.5-10.1); Chloride 105 mmol/L (98-107); Cholesterol 118 mg/dL (200); Creatinine, Serum 0.86 mg/dL (0.70-1.30); EST Glomerular Filtration Rate 93 mL/min (>60); Est Glom Filt Rate - Afr Amer 113 mL/min (>60); Globulin 3.3 g/dL (2.2-4.2); Glucose 117 mg/dL (74-106); High Density Lipoprotein 42 mg/dL; PSA,Total- Diagnostic 1.16 ng/mL (0.0-4.0); Protein, Total 7.4 g/dL (6.4-8.2); Sodium Level 138 mmol/L (136-145); Thyroid Stim Hormone (TSH) 1.55 uIU/mL (0.358-3.74); Triglycerides 95 mg/dL; Very Low Density Lipoprotein 19 mg/dL (5-40)
[2021-11-23 10:32] LABS: Absolute Lymphocyte Count 1.31 X10^3/uL (0.83-4.51); Absolute Neutrophil Count 4.1 X10^3/uL (2.0-7.7); Basophil# 0.02 X10^3/uL; Basophil% 0.3 % (0-1); Eosinophil# 0.19 X10^3/uL; Eosinophils% 3.1 % (0-5); Hematocrit 46.2 % (40-54); Hemoglobin 16.2 g/dL (13.0-16.5); Lymphocyte # 1.31 X10^3/ul (0.83-4.51); Lymphocyte % 21.7 % (19-41); Mean Corp Hgb Conc 35.1 g/dL (32-36); Mean Corpuscular Volume 91.1 fL (80-94); Monocyte# 0.45 X10^3/uL; Monocyte% 7.4 % (0-10); NRBC Flagged by Analyzer 0 % (0-5); Neutrophil # 4.07 X10^3/uL (2.7-7.7); Neutrophil % 67.3 % (47-70); Platelet Count 199 K/mm3 (150-450); RBC Distribution Width CV 12.4 % (11.6-14.6); RBC Distribution Width SD 41.4 fl (35.1-43.9); Red Blood Count 5.07 M/mm3 (4.6-6.2); White Blood Count 6.1 K/mm3 (4.4-11.0)
== END 2021-11-23 23:59 | disposition home or self-care (01) ==
LOC: MTLAB 08:21
PROVIDERS: PCP Family Medicine; Referring Provider Family Medicine; Visit Provider Family Medicine
DX: Z00.00 Encounter for general adult medical examination without abnormal findings (principal); I10 Essential (primary) hypertension; R73.9 Hyperglycemia, unspecified; R97.20 Elevated prostate specific antigen [PSA]; E78.5 Hyperlipidemia, unspecified; E03.9 Hypothyroidism, unspecified
CPT/HCPCS: 36415; 80053; 80061; 83036; 84153; 84443; 85025

== ENCOUNTER → 2023-02-17 | Outpatient (CLI) | payer MEDICARE, SELFPAY ==
--- NOTE | 2023-02-17 08:14 | RAD_ITS ---
INDICATION: KIDNEY STONE COMPARISON: Abdominal radiograph 12/18/2020. FINDINGS: 2 frontal views of the abdomen. Nonobstructive bowel gas pattern. No obvious free air. No definite suspicious calcifications. No mass appreciated. 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 RAD/Abdomen Single View IMPRESSION: Unremarkable abdomen. Severe right hip degenerative change. Electronically Signed: Anuj Bob MD at 2:24 EDT ,
[2023-02-17 10:17] LABS: PSA,Total - Annual Screen 1.17 ng/mL (0.00-4.00)
== END | disposition home or self-care (01) ==
PROVIDERS: PCP Family Medicine; Referring Provider Urology; Visit Provider Urology
DX: Z12.5 Encounter for screening for malignant neoplasm of prostate (principal); N20.0 Calculus of kidney
CPT/HCPCS: 36415; 74018; 84153; G0103

== ENCOUNTER → 2025-01-05 | Outpatient (CLI) | payer MEDICARE, SELFPAY ==
--- NOTE | 2025-01-05 12:37 | NEURO ---
NCS and/or EMG Patient Report Ordering Doctor: Tello Ford DATE OF SERVICE: 01/05/25 Emre presents numbness, tingling and weakness in the right hand. Electrodiagnostic findings: Right median motor nerve demonstrates prolonged latency with normal amplitude and conduction velocity. Right ulnar motor nerve demonstrates prolonged latency with reduced amplitude and reduced conduction velocity. No significant drop in conduction across the elbow. Normal right median and right ulnar F?waves. Prolonged right median sensory latency at the wrist. Absent right ulnar sensory response. Needle EMG testing was performed of the right upper limb. Decreased recruitment pattern noted in the right first dorsal interosseous. Electrodiagnostic impression: This is an abnormal study. 1. Electrodiagnostic findings suggestive of right-sided median mononeuropathy. This consistent with a mild right carpal tunnel syndrome. 2. 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 No focal conduction block is noted. 3. No electrodiagnostic evidence for cervical radiculopathy Multi [facility] Codes Neurology Neurology Interp Codes: 57144-51 Musc test done w/n test comp (interp) and 57812-34 Nrv cndj tst 5-6 studies (interp)
== END | disposition home or self-care (01) ==
LOC: PSN 10:33
PROVIDERS: PCP Family Medicine; Referring Provider Family Medicine; Visit Provider Family Medicine
DX: M62.541 Muscle wasting and atrophy, not elsewhere classified, right hand (principal)
CPT/HCPCS: 95886; 95909